=== PATIENT | male | born 1935 | race African-American/Black ===

== ENCOUNTER 2017-03-16 13:14 | Emergency (ER) | payer OTHER, MEDICAID ==
[~2017-03-16] VITALS: Ht 165.1 cm; Wt 71.0 kg
[2017-03-16 14:21] VITALS: BP 158/78
== END 2017-03-16 15:55 | disposition left against medical advice (07) ==
LOC: ER 13:14
DX: R33.9 Retention of urine, unspecified (principal); E11.9 Type 2 diabetes mellitus without complications; I10 Essential (primary) hypertension
CPT/HCPCS: 99281; A4315

== ENCOUNTER 2017-09-08 15:43 | Inpatient (IN) | payer OTHER, MEDICAID ==
[~2017-09-08] VITALS: Ht 165.1 cm; Wt 71.8 kg
[2017-09-08] MEDS ORDERED: DYZ GT (15:57)
[2017-09-08] MEDS ORDERED: SIMV10TA6 PO (15:57)
[2017-09-08] MEDS ORDERED: METO-539 PO (15:58)
[2017-09-08] MEDS ORDERED: NIFE60TA77 PO (15:58)
[2017-09-08] MEDS ORDERED: CLOP75TA33 PO (15:59)
[2017-09-08] MEDS ORDERED: LOSA50TA20 PO (15:59)
[2017-09-08] MEDS ORDERED: ACETAMINOPHEN 500MG TABLET PO SCH (16:15)
[2017-09-08 18:10] LABS: HEMATOCRIT. 45.6 % (42.0-52.0); HEMOGLOBIN. 15.1 g/dL (14.0-18.0); MEAN CORPUSCULAR HEMOGLOBIN 27.5 pg (28.0-32.0); MEAN PLATELET VOLUME 6.8 fl (7.4-10.4); RED BLOOD CELL COUNT 5.49 mill/uL (4.7-6.1)
[2017-09-08 18:16] LABS: CHLORIDE 106 mEq/L (98-107)
[2017-09-08 18:18] LABS: INR 1.2; PROTHROMBIN TIME 12.1 sec (9.4-11.6)
[2017-09-08 18:21] LABS: PLATELET 1504 x1000/uL (130-400)
[2017-09-08 18:48] LABS: PLATELET ESTIMATE MARKEDLY INCREASED
[2017-09-08 19:02] LABS: CLARITY URINE CLEAR (CLEAR); COLOR URINE YELLOW (YELLOW); KETONES URINE NEGATIVE (NEGATIVE); LEUKOCYTE ESTERASE URINE NEGATIVE (NEGATIVE); NITRITE URINE NEGATIVE (NEGATIVE); OCCULT BLOOD URINE 3+ (NEGATIVE); PH URINE 5.5 (4.5-8.0); PROTEIN URINE NEGATIVE (NEGATIVE); SPECIFIC GRAVITY URINE 1.016 (1.005-1.030)
[2017-09-08] MEDS ORDERED: PIPERACILLIN SODIUM/TAZOBACTAM 4.5 G in DEXT 5% WATER 100 ML IV SCH (21:00)
[2017-09-08] MEDS ORDERED: SODIUM CHLORIDE 0.9% 1000ML BAG (SEPSIS BOLUS) IV ONE (21:00)
[2017-09-08] MEDS ORDERED: VANCOMYCIN 1,500 MG in DEXT 5% WATER 250 ML IV SCH (21:00)
[2017-09-08] MEDS ORDERED: KETOROLAC 30MG/ML VIAL IV ONE (21:00)
[2017-09-08] MEDS ORDERED: VANCOMYCIN 1,500 MG in SODIUM CHLORIDE 0.9% 250 ML IV SCH (21:16)
[2017-09-09 03:30] VITALS: BP 168/78
[2017-09-09 04:28] VITALS: BP 168/78
[2017-09-09] MEDS ORDERED: ACETAMINOPHEN 325MG TABLET PO PRN (06:45)
[2017-09-09] MEDS ORDERED: CLONIDINE 0.2MG TABLET PO SCH (07:00)
[2017-09-09] MEDS: SODIUM CHLORIDE 0.45% 1,000 ML IV SCH (08:07)
[2017-09-09] MEDS: METOPROLOL TARTRATE 50MG TABLET PO SCH ×2 (08:12→21:33)
[2017-09-09] MEDS: CLONIDINE 0.2MG TABLET PO SCH ×3 (08:12→21:33)
[2017-09-09] MEDS: ENOXAPARIN 30MG/0.3ML SYR SUBCUT SCH ×2 (08:13→08:22)
[2017-09-09 08:22] VITALS: BP 152/67
[2017-09-09] MEDS ORDERED: PIPERACILLIN/TAZOBACTAM 2.25 G in SODIUM CHLORIDE 0.9% 50 ML IV SCH (09:00)
[2017-09-09 09:17] LABS: HEMATOCRIT 41.7 % (42.0-52.0); HEMOGLOBIN 13.9 g/dL (14.0-18.0); MEAN CORPUSCULAR HEMOGLOBIN 27.7 pg (28.0-32.0); MEAN CORPUSCULAR VOLUME 83.2 fL (80.0-94.0); RED BLOOD CELL COUNT 5.01 mill/uL (4.7-6.1); RED CELL DISTRIBUTION WIDTH 17.1 % (11.6-14.6)
[2017-09-09 09:27] LABS: PLATELET 1361 x1000/uL (130-400)
[2017-09-09 10:34] LABS: CHLORIDE 113 mEq/L (98-107)
[2017-09-09] MEDS: LEVOFLOXACIN 250MG PREMIX 50 ML IV SCH (11:22)
[2017-09-09 12:57] VITALS: BP 146/71
[2017-09-09] MEDS: PIPERACILLIN/TAZOBACTAM 2.25 G in SODIUM CHLORIDE 0.9% 50 ML IV SCH ×2 (15:43→21:33)
[2017-09-09 16:00] VITALS: BP 145/70
[2017-09-09 20:27] VITALS: BP 165/69
[2017-09-09] MEDS: HYDROCODONE/ACETAMINOPHEN 5/325MG TABLET PO PRN (21:41)
[2017-09-10] VITALS: BP 134/71
[2017-09-10 04:00] VITALS: BP 143/61
[2017-09-10] MEDS: PIPERACILLIN/TAZOBACTAM 2.25 G in SODIUM CHLORIDE 0.9% 50 ML IV SCH ×4 (04:01→21:56)
[2017-09-10] MEDS: SODIUM CHLORIDE 0.45% 1,000 ML IV SCH (04:03)
[2017-09-10 06:48] LABS: EOSINOPHILS % 2.9 % (0.0-5.0); HEMATOCRIT. 43.5 % (42.0-52.0); LYMPHOCYTES % 7.8 % (20.0-50.0); MEAN CORPUSCULAR HEMOGLOBIN 26.8 pg (28.0-32.0); MEAN PLATELET VOLUME 6.9 fl (7.4-10.4); MONOCYTES % 8.6 % (2.0-8.0); NEUTROPHILS % 79.7 % (40.0-76.0); RED BLOOD CELL COUNT 5.25 mill/uL (4.7-6.1)
[2017-09-10] MEDS: CLONIDINE 0.2MG TABLET PO SCH ×3 (06:53→22:00)
[2017-09-10] MEDS: HYDROXYUREA 500MG CAPSULE PO SCH (06:54)
[2017-09-10 08:13] VITALS: BP 138/66
[2017-09-10] MEDS: METOPROLOL TARTRATE 50MG TABLET PO SCH ×2 (08:31→21:56)
[2017-09-10] MEDS: ENOXAPARIN 30MG/0.3ML SYR SUBCUT SCH (08:32)
[2017-09-10] MEDS: HYDROCODONE/ACETAMINOPHEN 5/325MG TABLET PO PRN (09:19)
[2017-09-10 10:01] LABS: PLATELET 1137 x1000/uL (130-400); PLATELET ESTIMATE MARKEDLY INCREASED
[2017-09-10] MEDS: LEVOFLOXACIN 250MG PREMIX 50 ML IV SCH (10:02)
[2017-09-10 12:01] VITALS: BP 128/65
[2017-09-10] MEDS: AZITHROMYCIN 500 MG TABLET PO SCH (13:29)
[2017-09-10 16:00] VITALS: BP 133/56
[2017-09-10 20:00] VITALS: BP_SYST 120; BP_DIAS 53; BP_DIAS 57
[2017-09-11] VITALS: BP 120/53
[2017-09-11] MEDS: SODIUM CHLORIDE 0.45% 1,000 ML IV SCH
[2017-09-11] MEDS: PIPERACILLIN/TAZOBACTAM 2.25 G in SODIUM CHLORIDE 0.9% 50 ML IV SCH ×3 (03:55→15:39)
[2017-09-11 04:00] VITALS: BP 125/56
[2017-09-11 06:00] LABS: BASOPHILS % 0.8 % (0.0-2.0); EOSINOPHILS % 2.6 % (0.0-5.0); HEMOGLOBIN. 14.1 g/dL (14.0-18.0); LYMPHOCYTES % 7.8 % (20.0-50.0); MEAN CORPUSCULAR HEMOGLOBIN 27.4 pg (28.0-32.0); MEAN CORPUSCULAR VOLUME 83.5 fL (80.0-94.0); MEAN PLATELET VOLUME 6.8 fl (7.4-10.4); MONOCYTES % 9.5 % (2.0-8.0); NEUTROPHILS % 79.3 % (40.0-76.0); RED BLOOD CELL COUNT 5.15 mill/uL (4.7-6.1); RED CELL DISTRIBUTION WIDTH 17.1 % (11.6-14.6)
[2017-09-11] MEDS: HYDROXYUREA 500MG CAPSULE PO SCH (06:26)
[2017-09-11] MEDS: CLONIDINE 0.2MG TABLET PO SCH ×2 (06:27→13:49)
[2017-09-11 06:46] LABS: PLATELET 1119 x1000/uL (130-400)
[2017-09-11 08:00] VITALS: BP 130/57
[2017-09-11] MEDS: AZITHROMYCIN 500 MG TABLET PO SCH (08:31)
[2017-09-11] MEDS: METOPROLOL TARTRATE 50MG TABLET PO SCH (08:32)
[2017-09-11] MEDS ORDERED: ENOXAPARIN 40MG/0.4ML SYR SUBCUT SCH (09:00)
[2017-09-11 09:07] LABS: IMMUNOGLOBULIN A 143 mg/dL (61-437); IMMUNOGLOBULIN G 753 mg/dL (700-1600); IMMUNOGLOBULIN M 30 mg/dL (15-143)
[2017-09-11] MEDS: LEVOFLOXACIN 250MG PREMIX 50 ML IV SCH (09:56)
[2017-09-11 12:00] VITALS: BP 132/65
[2017-09-11] MEDS ORDERED: DOCUSATE SODIUM 250MG CAPSULE PO NR (15:30)
[2017-09-11] MEDS ORDERED: POLYETHYLENE GLYCOL 3350 (17GM) 1 DOSE PACK PO NR (15:30)
[2017-09-11 16:00] VITALS: BP 136/60
[2017-09-11 16:40] VITALS: BP 136/60
== END 2017-09-11 17:50 | disposition home or self-care (01) | DRG 728 ==
LOC: ER 16:40 → 6WST 22:00 → ENRESERV 09-09 02:09
PROVIDERS: ADMIT Internal Medicine; ATTEND Internal Medicine
DX: N41.9 Inflammatory disease of prostate, unspecified (principal); N17.9 Acute kidney failure, unspecified; E11.22 Type 2 diabetes mellitus with diabetic chronic kidney disease; I12.9 Hypertensive chronic kidney disease with stage 1 through stage 4 chronic kidney disease, or unspecified chronic kidney disease; K64.9 Unspecified hemorrhoids; N18.9 Chronic kidney disease, unspecified; N40.1 Benign prostatic hyperplasia with lower urinary tract symptoms; D47.3 Essential (hemorrhagic) thrombocythemia; K59.00 Constipation, unspecified; R33.8 Other retention of urine; Z90.49 Acquired absence of other specified parts of digestive tract
CPT/HCPCS: 36415; 51702; 71045; 76770; 80048; 80053; 81003; 82784; 83605; 84153; 85025; 85027; 85610; 86334; 87040; 87186; 93005; 96365; 96366; 96367; 96375; 99285; A6261; C1893; J1650; J1885; J1956; J2543; J3370; J7030; J7050; J7060

== ENCOUNTER 2018-07-05 12:42 | Inpatient (IN) | payer OTHER ==
[~2018-07-05] VITALS: Ht 167.6 cm; Wt 71.7 kg
[~2018-07-05 12:42] MED LIST: ACET-2853 PO; FINA5TAB11 PO; LOSA50TA20 PO; METO-539 PO; NIFE60TA77 PO; SENN25TA27 PO; SIMV10TA6 PO; TAMS0.4C31 PO; TRAM50TA3 MT; TRIA1TAB92 MT
[2018-07-05 16:12] LABS: BASOPHILS % 1.2 % (0.0-2.0); EOSINOPHILS % 3.1 % (0.0-5.0); HEMATOCRIT. 52.3 % (42.0-52.0); HEMOGLOBIN. 17.4 g/dL (14.0-18.0); LYMPHOCYTES % 12.1 % (20.0-50.0); MEAN CORPUSCULAR HEMOGLOBIN 27.8 pg (28.0-32.0); MEAN CORPUSCULAR VOLUME 83.5 fL (80.0-94.0); MEAN PLATELET VOLUME 7.4 fl (7.4-10.4); MONOCYTES % 9.8 % (2.0-8.0); NEUTROPHILS % 73.8 % (40.0-76.0); RED BLOOD CELL COUNT 6.26 mill/uL (4.7-6.1); RED CELL DISTRIBUTION WIDTH 17.2 % (11.6-14.6)
[2018-07-05 16:13] LABS: CLARITY URINE TURBID (CLEAR); COLOR URINE YELLOW (YELLOW); KETONES URINE TRACE (NEGATIVE); LEUKOCYTE ESTERASE URINE 3+ (NEGATIVE); NITRITE URINE NEGATIVE (NEGATIVE); OCCULT BLOOD URINE 1+ (NEGATIVE); PROTEIN URINE 3+ (NEGATIVE); SPECIFIC GRAVITY URINE 1.016 (1.005-1.030); UROBILINOGEN URINE 0.2 E.U./dL (0.2-1.0)
[2018-07-05 16:17] LABS: CHLORIDE 105 mEq/L (98-107)
[2018-07-05 16:19] LABS: INR 1.1; PARTIAL THROMBOPLASTIN TIME 38.1 sec (23.4-31.0); PLATELET 1092 x1000/uL (130-400); PROTHROMBIN TIME 11.4 sec (9.1-11.1)
[2018-07-05] MEDS ORDERED: GUAIFENESIN 200MG/10ML SUGAR FREE UDC PO PRN (18:15)
[2018-07-05] MEDS ORDERED: MAGNESIUM/ALUMINUM HYDROXIDE/SIMETHICONE 30ML UDC PO PRN (18:15)
[2018-07-05] MEDS ORDERED: ONDANSETRON HCL 4MG/2ML INJ IV PRN (18:15)
[2018-07-05] MEDS ORDERED: HYDROCODONE/ACETAMINOPHEN 5/325MG TABLET PO PRN (18:15)
[2018-07-05] MEDS ORDERED: DIPHENHYDRAMINE 50MG/ML VIAL IV PRN (18:15)
[2018-07-05] MEDS ORDERED: ACETAMINOPHEN 650MG SUPP PR PRN (18:15)
[2018-07-05] MEDS ORDERED: LORAZEPAM 0.5MG TABLET PO PRN (18:15)
[2018-07-05] MEDS ORDERED: DOCUSATE SODIUM 100MG CAPSULE PO PRN (18:15)
[2018-07-05] MEDS ORDERED: ACETAMINOPHEN 325MG TABLET PO PRN (18:15)
[2018-07-05] MEDS ORDERED: IPRATROPIUM/ALBUTEROL 0.5-3(2.5)MG/3ML NEB INH PRN (18:15)
[2018-07-05] MEDS ORDERED: CLONIDINE 0.1MG TABLET PO PRN (18:15)
[2018-07-05] MEDS ORDERED: PANTOPRAZOLE SODIUM 40 MG/VIAL IV SCH (18:45)
[2018-07-05 20:20] LABS: *AMPHETAMINES SCREEN URINE NEGATIVE (NEGATIVE); *BARBITURATES SCREEN URINE NEGATIVE (NEGATIVE); *BENZODIAZEPINES SCREEN URINE NEGATIVE (NEGATIVE); *COCAINE SCREEN URINE NEGATIVE (NEGATIVE)
[2018-07-05 20:21] LABS: CANNABINOID URINE SCREEN NEGATIVE (NEGATIVE); OPIATES URINE SCREEN NEGATIVE (NEGATIVE); PHENCYCLIDINE URINE SCREEN NEGATIVE (NEGATIVE)
[2018-07-05 20:23] LABS: METHADONE URINE SCREEN NEGATIVE (NEGATIVE)
[2018-07-05] MEDS ORDERED: SODIUM POLYSTYRENE SULFONATE 15 G/60 ML BOT PO NR (21:00)
[2018-07-05] MEDS ORDERED: PIPERACILLIN/TAZ 2.25G PREMIX 50 ML IV NR (21:00)
[2018-07-05] MEDS: DEXT 5%/0.45% NACL 1000ML 1,000 ML IV SCH (22:39)
[2018-07-06 03:29] VITALS: BP 167/74
[2018-07-06] MEDS: DEXT 5%/0.45% NACL 1000ML 1,000 ML IV SCH (03:47)
[2018-07-06] MEDS: PIPERACILLIN/TAZ 2.25G PREMIX 50 ML IV SCH ×2 (05:15→12:17)
[2018-07-06] MEDS ORDERED: VANCOMYCIN 750 MG PREMIX 150 ML IV SCH (07:00)
[2018-07-06 08:00] VITALS: BP 131/66
[2018-07-06] MEDS ORDERED: PANTOPRAZOLE SODIUM 40 MG/VIAL IV SCH (09:00)
[2018-07-06 11:14] LABS: HEMATOCRIT. 48.2 % (42.0-52.0); HEMOGLOBIN. 15.9 g/dL (14.0-18.0); MEAN CORPUSCULAR HEMOGLOBIN 27.6 pg (28.0-32.0); MEAN PLATELET VOLUME 7.2 fl (7.4-10.4); PLATELET 853 x1000/uL (130-400); RED BLOOD CELL COUNT 5.74 mill/uL (4.7-6.1); RED CELL DISTRIBUTION WIDTH 16.9 % (11.6-14.6)
[2018-07-06 12:00] VITALS: BP 142/66
[2018-07-06] MEDS ORDERED: PNEUMOCOCCAL 23-VAL P-SAC VAC 0.5 ML IM ONE (12:00)
[2018-07-06 12:15] LABS: CHLORIDE 106 mEq/L (98-107)
[2018-07-06 12:23] LABS: LDL CHOLESTEROL 64 mg/dL (5-100)
[2018-07-06 12:24] LABS: HDL CHOLESTEROL 17 mg/dL (40-59)
[2018-07-06 13:16] LABS: PLATELET ESTIMATE MARKEDLY INCREASED
[2018-07-06] MEDS ORDERED: PHENYLEPHRINE/SHK LV/MO/PET,WH RECTAL OINT 28GM PR SCH (14:00)
[2018-07-06 15:48] LABS: PLATELET ESTIMATE MARKEDLY INCREASED
[2018-07-06 16:00] VITALS: BP 158/70
[2018-07-06 17:00] VITALS: BP 142/66
[2018-07-07] MEDS ORDERED: DOCUSATE SODIUM 250MG CAPSULE PO SCH (09:00)
== END 2018-07-06 17:45 | disposition home or self-care (01) | DRG 394 ==
LOC: ER 13:21 → 8WST 16:56 → ENRESERV 07-06 01:02
PROVIDERS: ADMIT Internal Medicine; ATTEND Internal Medicine
DX: K64.8 Other hemorrhoids (principal); C78.7 Secondary malignant neoplasm of liver and intrahepatic bile duct; C79.51 Secondary malignant neoplasm of bone; N39.0 Urinary tract infection, site not specified; N17.9 Acute kidney failure, unspecified; K59.00 Constipation, unspecified; D72.829 Elevated white blood cell count, unspecified; D47.3 Essential (hemorrhagic) thrombocythemia; E87.5 Hyperkalemia; E78.5 Hyperlipidemia, unspecified; E78.00 Pure hypercholesterolemia, unspecified; C61 Malignant neoplasm of prostate; I12.9 Hypertensive chronic kidney disease with stage 1 through stage 4 chronic kidney disease, or unspecified chronic kidney disease; I73.9 Peripheral vascular disease, unspecified; N18.9 Chronic kidney disease, unspecified; N40.1 Benign prostatic hyperplasia with lower urinary tract symptoms; Z79.02 Long term (current) use of antithrombotics/antiplatelets; Z79.1 Long term (current) use of non-steroidal anti-inflammatories (NSAID); Z79.899 Other long term (current) drug therapy
CPT/HCPCS: 36415; 71045; 74176; 80061; 80305; 82270; 83605; 84153; 84439; 84443; 86850; 86900; 87077; 87186; 90732; 93005; 93970; 96374; 97162; 99291; C9113; J2543; J3370; G0103

== ENCOUNTER 2018-09-01 22:27 | Emergency (ER) | payer OTHER ==
[~2018-09-01] VITALS: Ht 167.6 cm; Wt 69.0 kg
[2018-09-02] MEDS ORDERED: NA PHOS,M-B/NA PHOS,DI-BA ENEMA 118ML PR ONE (01:15)
[2018-09-02] MEDS ORDERED: LACTULOSE 20G/30ML UDC PO ONE (02:00)
[2018-09-02 02:36] LABS: HEMATOCRIT. 53.8 % (42.0-52.0); HEMOGLOBIN. 17.7 g/dL (14.0-18.0); MEAN CORPUSCULAR HEMOGLOBIN 26.5 pg (28.0-32.0); MEAN CORPUSCULAR VOLUME 80.9 fL (80.0-94.0); MEAN PLATELET VOLUME 7.2 fl (7.4-10.4); RED BLOOD CELL COUNT 6.66 mill/uL (4.7-6.1); RED CELL DISTRIBUTION WIDTH 18.1 % (11.6-14.6)
[2018-09-02 02:38] LABS: PLATELET 1326 x1000/uL (130-400)
[2018-09-02 02:42] LABS: CHLORIDE 103 mEq/L (98-107)
[2018-09-02 04:51] LABS: PLATELET ESTIMATE INCREASED
[2018-09-02 05:12] VITALS: BP 180/87
== END 2018-09-02 05:15 | disposition home or self-care (01) ==
LOC: ER 22:27
DX: K59.00 Constipation, unspecified (principal); K62.89 Other specified diseases of anus and rectum; R11.2 Nausea with vomiting, unspecified; I10 Essential (primary) hypertension; Z85.46 Personal history of malignant neoplasm of prostate; Z79.899 Other long term (current) drug therapy
CPT/HCPCS: 36415; 74018; 99284

== ENCOUNTER 2020-01-31 09:20 | Inpatient (IN) | payer OTHER ==
[~2020-01-31] VITALS: Ht 165.1 cm; Wt 67.7 kg
[~2020-01-31 09:20] MED LIST changes: -ACET-2853 PO; +ACET650T37 PO; -LOSA50TA20 PO; +LOSA50TA41 PO; -SIMV10TA6 PO; +SIMV10TA97 PO
[2020-01-31] MEDS ORDERED: ASPIRIN 81MG TABLET PO ONE (09:30)
[2020-01-31] MEDS ORDERED: IBUP-2029 PO (09:32)
[2020-01-31] MEDS ORDERED: ENZA40CA PO (09:32)
[2020-01-31] MEDS ORDERED: CLOP75TA33 PO (09:32)
[2020-01-31 09:52] LABS: HEMOGLOBIN. 12.8 g/dL (14.0-18.0); MEAN CORPUSCULAR HEMOGLOBIN 28.6 pg (28.0-32.0); MEAN PLATELET VOLUME 7.3 fl (7.4-10.4); RED BLOOD CELL COUNT 4.48 mill/uL (4.7-6.1)
[2020-01-31 09:57] LABS: CHLORIDE 109 mEq/L (98-107)
[2020-01-31 09:59] LABS: PLATELET 1286 x1000/uL (130-400)
[2020-01-31] MEDS ORDERED: SODIUM CHLORIDE 0.9% 1,000 ML IV ONE (10:00)
[2020-01-31] MEDS ORDERED: KETOROLAC 30MG/ML VIAL IV ONE (10:15)
[2020-01-31 10:41] LABS: PLATELET ESTIMATE MARKEDLY INCREASED
[2020-01-31] MEDS: ASPIRIN 81MG TABLET PO SCH (12:30)
[2020-01-31] MEDS ORDERED: ACETAMINOPHEN 650MG SUPP PR PRN (12:30)
[2020-01-31] MEDS ORDERED: DOCUSATE SODIUM 100MG CAPSULE PO PRN (12:30)
[2020-01-31] MEDS ORDERED: LORAZEPAM 0.5MG TABLET PO PRN (12:30)
[2020-01-31] MEDS ORDERED: MAGNESIUM/ALUMINUM HYDROXIDE/SIMETHICONE 30ML UDC PO PRN (12:30)
[2020-01-31] MEDS ORDERED: ONDANSETRON HCL 4MG/2ML INJ IV PRN (12:30)
[2020-01-31] MEDS ORDERED: CLONIDINE 0.1MG TABLET PO PRN (12:30)
[2020-01-31] MEDS ORDERED: MORPHINE SULFATE 2 MG/ML CPJ (NOT FOR IM USE) IV PRN (12:30)
[2020-01-31] MEDS ORDERED: AZITHROMYCIN 500 MG in DEXT 5% WATER 250 ML IV SCH (12:30)
[2020-01-31] MEDS ORDERED: IPRATROPIUM/ALBUTEROL 0.5-3(2.5)MG/3ML NEB NEB PRN (12:30)
[2020-01-31] MEDS ORDERED: ACETAMINOPHEN 325MG TABLET PO PRN (12:30)
[2020-01-31] MEDS ORDERED: GUAIFENESIN 200MG/10ML SUGAR FREE UDC PO PRN (12:30)
[2020-01-31] MEDS ORDERED: CEFTRIAXONE 1 G PREMIX 50 ML IV NR (13:00)
[2020-01-31 14:10] LABS: BG BASE EXCESS -8.7 mmol/L (-2.0-2.0); BG CARBOXYHEMOGLOBIN 0.9 % (0.5-1.5); BG DEOXYHEMOGLOBIN 1.3 % (0.0-5.0); BG FRACTION INSPIRED OXYGEN 28; BG HCO3 ACT 15.6 mmol/L (22.0-26.0); BG METHEMOGLOBIN 0.1 % (0.0-1.5); BG OXYGEN SATURATION 98.7 % (92.0-98.5); BG OXYHEMOGLOBIN 97.7 % (94.0-97.0); BG PCO2 29.5 mmHg (35.0-45.0); BG PH 7.342 (7.350-7.450); BG PO2 131.9 mmHg (75.0-100.0); BG SAMPLE SITE RIGHT RADIAL; BG TOTAL HEMOGLOBIN 13.4 g/dL (12.0-18.0); BG VENT MODE NASAL CANNULA
[2020-01-31] MEDS: HYDROCODONE/ACETAMINOPHEN 5/325MG TABLET PO PRN (14:44)
[2020-01-31] MEDS: DIPHENHYDRAMINE 50MG/ML VIAL IV PRN (15:31)
[2020-01-31] MEDS ORDERED: SODIUM BICARBONATE 8.4% 1 MEQ/ML 50ML SYR IV NR ×2 (17:23)
[2020-01-31] MEDS: SODIUM CHLORIDE 0.45% 1,000 ML IV SCH (17:35)
[2020-01-31 17:43] LABS: CREATINE KINASE 194 IU/L (39-308)
[2020-01-31 17:44] LABS: CREATINE KINASE MB FRACTION 2.1 ng/mL (0.5-3.6)
[2020-01-31] MEDS ORDERED: PERMETHRIN 5% CREAM 60GM TOP SCH (18:00)
[2020-01-31] MEDS: FAMOTIDINE 20MG TABLET PO SCH (21:00)
[2020-01-31 23:55] VITALS: BP 133/51
[2020-02-01] VITALS: BP 133/51
[2020-02-01 00:12] LABS: CREATINE KINASE MB FRACTION 2.5 ng/mL (0.5-3.6)
[2020-02-01] MEDS ORDERED: TRIA1TAB92 MT (00:36)
[2020-02-01] MEDS: SODIUM CHLORIDE 0.45% 1,000 ML IV SCH ×3 (01:15→16:47)
[2020-02-01] MEDS: DIPHENHYDRAMINE 50MG/ML VIAL IV PRN (01:33)
[2020-02-01 04:00] VITALS: BP 124/52
[2020-02-01 06:25] LABS: BASOPHILS % 0.6 % (0.0-2.0); EOSINOPHILS % 1.4 % (0.0-5.0); HEMOGLOBIN. 12.8 g/dL (14.0-18.0); LYMPHOCYTES % 7.7 % (20.0-50.0); MEAN CORPUSCULAR HEMOGLOBIN 28.3 pg (28.0-32.0); MEAN CORPUSCULAR VOLUME 86.1 fL (80.0-94.0); MEAN PLATELET VOLUME 7.2 fl (7.4-10.4); NEUTROPHILS % 83.3 % (40.0-76.0); RED BLOOD CELL COUNT 4.53 mill/uL (4.7-6.1); RED CELL DISTRIBUTION WIDTH 19.2 % (11.6-14.6)
[2020-02-01 06:28] LABS: CHLORIDE 110 mEq/L (98-107)
[2020-02-01 06:39] LABS: LDL CHOLESTEROL 59 mg/dL (5-100)
[2020-02-01 06:41] LABS: HDL CHOLESTEROL 19 mg/dL (40-59); T4 FREE 1.15 ng/dL (0.76-1.46)
[2020-02-01 06:46] LABS: PLATELET 1358 x1000/uL (130-400)
[2020-02-01 08:00] VITALS: BP 144/55
[2020-02-01] MEDS: ASPIRIN 81MG TABLET PO SCH (08:17)
[2020-02-01 12:00] VITALS: BP 145/64
[2020-02-01] MEDS ORDERED: AZITHROMYCIN 500 MG in DEXT 5% WATER 250 ML IV SCH (12:00)
[2020-02-01] MEDS ORDERED: CEFTRIAXONE 1,000 MG in DEXTROSE 5% WATER 50 ML IV SCH ×4 (13:00)
[2020-02-01 16:00] VITALS: BP 123/54
[2020-02-01] MEDS ORDERED: SODIUM POLYSTYRENE SULFONATE 15 G/60 ML BOT PO NR (16:00)
[2020-02-01 16:13] LABS: PROTHROMBIN TIME 10.9 sec (9.6-11.0)
[2020-02-01] MEDS: PIPERACILLIN/TAZOBACTAM 2.25 G in DEXTROSE 5% WATER 50 ML IV SCH ×2 (16:46→23:54)
[2020-02-01] MEDS ORDERED: PERMETHRIN 5% CREAM 60GM TOP ONE (17:15)
[2020-02-01 20:00] VITALS: BP 130/52
[2020-02-01] MEDS: FAMOTIDINE 20MG TABLET PO SCH (20:11)
[2020-02-02] VITALS: BP 151/64
[2020-02-02] MEDS: HYDROCODONE/ACETAMINOPHEN 5/325MG TABLET PO PRN ×3 (01:28→13:28)
[2020-02-02 04:00] VITALS: BP 123/50
[2020-02-02] MEDS: PIPERACILLIN/TAZOBACTAM 2.25 G in DEXTROSE 5% WATER 50 ML IV SCH ×2 (04:09→09:30)
[2020-02-02] MEDS: SODIUM CHLORIDE 0.45% 1,000 ML IV SCH ×2 (04:10→13:31)
[2020-02-02 05:05] LABS: HEMATOCRIT 34.8 % (42.0-52.0); HEMOGLOBIN 11.8 g/dL (14.0-18.0); MEAN CORPUSCULAR HEMOGLOBIN 28.9 pg (28.0-32.0); MEAN CORPUSCULAR VOLUME 85.2 fL (80.0-94.0); RED BLOOD CELL COUNT 4.08 mill/uL (4.7-6.1); RED CELL DISTRIBUTION WIDTH 18.4 % (11.6-14.6)
[2020-02-02 06:45] LABS: PLATELET 1219 x1000/uL (130-400)
[2020-02-02] MEDS ORDERED: BICALUTAMIDE 50 MG TABLET PO SCH (09:00)
[2020-02-02 09:03] VITALS: BP 116/57
[2020-02-02] MEDS: ASPIRIN 81MG TABLET PO SCH (09:24)
[2020-02-02 12:24] VITALS: BP 115/55
[2020-02-02] MEDS ORDERED: LEVO500T2 MT (14:27)
[2020-02-02] MEDS ORDERED: ASPI-1497 MT (14:27)
[2020-02-02 14:57] VITALS: BP 115/75
== END 2020-02-02 15:51 | disposition home health service (06) | DRG 871 ==
LOC: ER 09:20 → 7WST 11:32 → CANRESERV 11:59 → ENRESERV 11:59 → SUPCPDRO 12:27 → ENRESERV 21:26 → 6WST 02-01 06:06
PROVIDERS: ADMIT Internal Medicine; ATTEND Internal Medicine
DX: A41.9 Sepsis, unspecified organism (principal); J18.9 Pneumonia, unspecified organism; C79.51 Secondary malignant neoplasm of bone; D68.59 Other primary thrombophilia; E87.2 Acidosis; N17.9 Acute kidney failure, unspecified; G90.8 Other disorders of autonomic nervous system; D64.9 Anemia, unspecified; D72.823 Leukemoid reaction; E78.5 Hyperlipidemia, unspecified; E86.1 Hypovolemia; E87.5 Hyperkalemia; I13.10 Hypertensive heart and chronic kidney disease without heart failure, with stage 1 through stage 4 chronic kidney disease, or unspecified chronic kidney disease; N18.9 Chronic kidney disease, unspecified; I25.10 Atherosclerotic heart disease of native coronary artery without angina pectoris; C61 Malignant neoplasm of prostate; G89.29 Other chronic pain; K59.00 Constipation, unspecified; R04.0 Epistaxis; Z82.49 Family history of ischemic heart disease and other diseases of the circulatory system; Z03.818 Encounter for observation for suspected exposure to other biological agents ruled out; D47.3 Essential (hemorrhagic) thrombocythemia; R79.89 Other specified abnormal findings of blood chemistry
CPT/HCPCS: 36415; 36600; 71045; 72170; 72192; 73721; 76700; 80048; 80053; 80061; 80076; 82375; 82550; 82553; 82805; 82962; 83880; 84153; 84439; 84443; 84484; 85025; 85027; 93005; 93306; 93880; 93970; 97116; 97162; 99285; J0456; J0696; J1200; J1885; J2270; J2405; J2543; J3490; J7030; J7060; G0103; U0003-CS

== ENCOUNTER 2020-10-24 19:02 | Inpatient (IN) | payer OTHER ==
[~2020-10-24] VITALS: Ht 162.6 cm; Wt 47.6 kg
[~2020-10-24 19:02] MED LIST changes: +ASPI-1497 MT; +CLOP75TA33 PO; +ENZA40CA PO; +LEVO500T2 MT; -LOSA50TA41 PO; -TRAM50TA3 MT; -TRIA1TAB92 MT
[2020-10-24] MEDS ORDERED: PANTOPRAZOLE SODIUM 40 MG/VIAL IV SCH (19:45)
[2020-10-24] MEDS ORDERED: ONDANSETRON HCL 4MG/2ML INJ IV ONE (20:15)
[2020-10-24] MEDS ORDERED: MORPHINE SULFATE 2 MG/ML CPJ (NOT FOR IM USE) IV ONE (20:15)
[2020-10-24] MEDS ORDERED: SODIUM CHLORIDE 0.9% 1,000 ML IV ONE (20:15)
[2020-10-24 20:48] LABS: CHLORIDE 104 mEq/L (98-107)
[2020-10-24 21:11] LABS: HEMOGLOBIN. 16.7 g/dL (14.0-18.0); MEAN CORPUSCULAR HEMOGLOBIN 25.2 pg (28.0-32.0); MEAN CORPUSCULAR VOLUME 77.2 fL (80.0-94.0); MEAN PLATELET VOLUME 7.9 fl (7.4-10.4); PLATELET 687 x1000/uL (130-400); RED CELL DISTRIBUTION WIDTH 18.4 % (11.6-14.6)
[2020-10-24 21:14] LABS: INR 1.2; PROTHROMBIN TIME 12.7 sec (9.6-11.0)
[2020-10-24] MEDS ORDERED: DEXTROSE 50% WATER 50ML SYRINGE IV NR (21:30)
[2020-10-24] MEDS ORDERED: INSULIN REGULAR (HUMULIN R) 300UNITS/3ML VIAL IV NR (21:30)
[2020-10-24] MEDS ORDERED: FUROSEMIDE 40MG/4ML VIAL IV NR (21:30)
[2020-10-24] MEDS ORDERED: SODIUM BICARBONATE 8.4% 1 MEQ/ML 50ML SYR IV NR (21:30)
[2020-10-24 21:34] LABS: PLATELET ESTIMATE INCREASED
[2020-10-25] VITALS (16 sets, daily range): BP systolic 113–134; BP diastolic 53–66
[2020-10-25] MEDS: DEXT 5%/0.45% NACL 1000ML 1,000 ML IV SCH ×3 (03:52→23:55)
[2020-10-25] MEDS ORDERED: ONDANSETRON HCL 4MG/2ML INJ IV PRN (04:00)
[2020-10-25] MEDS ORDERED: VANCOMYCIN 750 MG PREMIX 150 ML IV NR (05:00)
[2020-10-25] MEDS: MEROPENEM 1,000 MG in SODIUM CHLORIDE 0.9% 100 ML IV SCH ×2 (05:52→18:11)
[2020-10-25] MEDS ORDERED: ONDANSETRON HCL 4MG/2ML INJ IV SCH (06:00)
[2020-10-25 08:18] LABS: BG BASE EXCESS -5.6 mmol/L (-2.0-2.0); BG CARBOXYHEMOGLOBIN 0.4 % (0.5-1.5); BG FRACTION INSPIRED OXYGEN 32; BG HCO3 ACT 16.2 mmol/L (22.0-26.0); BG METHEMOGLOBIN 0.5 % (0.0-1.5); BG OXYHEMOGLOBIN 98.1 % (94.0-97.0); BG PH 7.448 (7.350-7.450); BG PO2 149.6 mmHg (75.0-100.0); BG SAMPLE SITE RIGHT BRACHIAL; BG TOTAL HEMOGLOBIN 15.6 g/dL (12.0-18.0); BG VENT MODE NASAL CANNULA
[2020-10-25] MEDS: PANTOPRAZOLE SODIUM 40 MG/VIAL IV SCH (09:14)
[2020-10-25 10:03] LABS: CHLORIDE 109 mEq/L (98-107)
[2020-10-25 10:13] LABS: HEMATOCRIT. 47.6 % (42.0-52.0); MEAN CORPUSCULAR HEMOGLOBIN 24.8 pg (28.0-32.0); MEAN CORPUSCULAR VOLUME 78.6 fL (80.0-94.0); MEAN PLATELET VOLUME 8.2 fl (7.4-10.4); PLATELET 533 x1000/uL (130-400); RED BLOOD CELL COUNT 6.05 mill/uL (4.7-6.1); RED CELL DISTRIBUTION WIDTH 18.6 % (11.6-14.6)
[2020-10-25 10:43] LABS: PLATELET ESTIMATE INCREASED
[2020-10-25 17:38] LABS: TOTAL IRON BINDING CAPACITY 247 ug/dL (250-450)
[2020-10-26] VITALS (12 sets, daily range): BP systolic 115–147; BP diastolic 53–71
[2020-10-26] MEDS: DEXT 5%/0.45% NACL 1000ML 1,000 ML IV SCH ×2 (02:03→18:05)
[2020-10-26] MEDS: MEROPENEM 1,000 MG in SODIUM CHLORIDE 0.9% 100 ML IV SCH ×2 (05:00→18:04)
[2020-10-26 07:17] LABS: HEMATOCRIT. 42.6 % (42.0-52.0); HEMOGLOBIN. 13.9 g/dL (14.0-18.0); MEAN CORPUSCULAR HEMOGLOBIN 25.5 pg (28.0-32.0); MEAN CORPUSCULAR VOLUME 77.9 fL (80.0-94.0); MEAN PLATELET VOLUME 8.2 fl (7.4-10.4); PLATELET 514 x1000/uL (130-400); RED BLOOD CELL COUNT 5.46 mill/uL (4.7-6.1); RED CELL DISTRIBUTION WIDTH 18.5 % (11.6-14.6)
[2020-10-26] MEDS: PANTOPRAZOLE SODIUM 40 MG/VIAL IV SCH (09:56)
[2020-10-26] MEDS ORDERED: VANCOMYCIN 750 MG PREMIX 150 ML IV SCH (12:00)
[2020-10-26] MEDS: NYSTATIN 100,000 UNITS/ML 5ML UDC SSW SCH ×3 (13:34→22:56)
[2020-10-26] MEDS ORDERED: SODIUM CHLORIDE 0.9% 1000ML BAG (SEPSIS BOLUS) IV ONE (15:00)
[2020-10-26] MEDS ORDERED: MORPHINE SULFATE 2 MG/ML CPJ (NOT FOR IM USE) IV PRN (19:15)
[2020-10-26 21:44] LABS: PLATELET ESTIMATE INCREASED
[2020-10-27] VITALS (13 sets, daily range): BP systolic 125–158; BP diastolic 56–74
[2020-10-27] MEDS: DEXT 5%/0.45% NACL 1000ML 1,000 ML IV SCH ×4 (00:50→21:31)
[2020-10-27 01:19] LABS: CLARITY URINE CLOUDY (CLEAR); COLOR URINE DARK YELLOW (YELLOW); KETONES URINE NEGATIVE (NEGATIVE); LEUKOCYTE ESTERASE URINE TRACE (NEGATIVE); NITRITE URINE NEGATIVE (NEGATIVE); OCCULT BLOOD URINE TRACE (NEGATIVE); PROTEIN URINE 1+ (NEGATIVE); SPECIFIC GRAVITY URINE 1.016 (1.005-1.030); UROBILINOGEN URINE 0.2 E.U./dL (0.2-1.0)
[2020-10-27] MEDS: MEROPENEM 1,000 MG in SODIUM CHLORIDE 0.9% 100 ML IV SCH ×2 (05:56→17:04)
[2020-10-27] MEDS: NYSTATIN 100,000 UNITS/ML 5ML UDC SSW SCH ×4 (06:04→23:48)
[2020-10-27 06:43] LABS: HEMATOCRIT. 40.4 % (42.0-52.0); HEMOGLOBIN. 12.9 g/dL (14.0-18.0); MEAN CORPUSCULAR VOLUME 78.4 fL (80.0-94.0); MEAN PLATELET VOLUME 8.1 fl (7.4-10.4); PLATELET 421 x1000/uL (130-400); RED BLOOD CELL COUNT 5.15 mill/uL (4.7-6.1); RED CELL DISTRIBUTION WIDTH 18.4 % (11.6-14.6)
[2020-10-27 06:45] LABS: CHLORIDE 112 mEq/L (98-107)
[2020-10-27 06:59] LABS: PHOSPHORUS 1.8 mg/dL (2.5-4.9)
[2020-10-27] MEDS: FAMOTIDINE 20MG/2ML VIAL IV SCH (09:18)
[2020-10-27] MEDS ORDERED: VANCOMYCIN 500 MG PREMIX 100 ML IV SCH (12:00)
[2020-10-27 14:51] LABS: PLATELET ESTIMATE INCREASED
[2020-10-27] MEDS ORDERED: BISACODYL 10MG SUPP PR PRN (17:15)
[2020-10-27] MEDS: FERROUS SULFATE 325MG TABLET PO SCH (17:35)
[2020-10-27] MEDS ORDERED: POTASSIUM PHOS,M-BASIC-D-BASIC 20 MMOL in DEXT 5% WATER 243.3333 ML IV NR (18:00)
[2020-10-27] MEDS: ASCORBIC ACID 500 MG TABLET PO SCH (21:31)
[2020-10-28] VITALS (10 sets, daily range): BP systolic 129–143; BP diastolic 53–69
[2020-10-28] MEDS: DEXT 5%/0.45% NACL 1000ML 1,000 ML IV SCH ×3 (03:00→20:05)
[2020-10-28] MEDS: MEROPENEM 1,000 MG in SODIUM CHLORIDE 0.9% 100 ML IV SCH ×2 (05:42→18:10)
[2020-10-28] MEDS: NYSTATIN 100,000 UNITS/ML 5ML UDC SSW SCH ×3 (05:58→18:00)
[2020-10-28 07:11] LABS: *CREATININE RANDOM URINE 59.4 mg/dL (Not Estab.); MICROALBUMIN RANDOM URINE 78.9 ug/mL (Not Estab.)
[2020-10-28 08:18] LABS: CHLORIDE 110 mEq/L (98-107)
[2020-10-28] MEDS: ASCORBIC ACID 500 MG TABLET PO SCH ×3 (08:18→20:00)
[2020-10-28] MEDS: FAMOTIDINE 20MG/2ML VIAL IV SCH (08:18)
[2020-10-28] MEDS: BISACODYL 5MG TABLET PO SCH (08:19)
[2020-10-28] MEDS: POLYETHYLENE GLYCOL 3350 (17GM) 1 DOSE PACK PO SCH (08:19)
[2020-10-28 08:22] LABS: PHOSPHORUS 3.3 mg/dL (2.5-4.9)
[2020-10-28] MEDS: FERROUS SULFATE 325MG TABLET PO SCH ×3 (08:26→18:00)
[2020-10-28 08:49] LABS: HEMATOCRIT. 38.9 % (42.0-52.0); HEMOGLOBIN. 12.6 g/dL (14.0-18.0); MEAN CORPUSCULAR HEMOGLOBIN 25.1 pg (28.0-32.0); MEAN CORPUSCULAR VOLUME 77.2 fL (80.0-94.0); MEAN PLATELET VOLUME 7.8 fl (7.4-10.4); PLATELET 415 x1000/uL (130-400); RED BLOOD CELL COUNT 5.04 mill/uL (4.7-6.1); RED CELL DISTRIBUTION WIDTH 18.2 % (11.6-14.6)
[2020-10-28 11:43] LABS: PLATELET ESTIMATE INCREASED
[2020-10-28] MEDS: VANCOMYCIN 750 MG PREMIX 150 ML IV SCH (13:15)
[2020-10-29] VITALS (13 sets, daily range): BP systolic 132–152; BP diastolic 62–78
[2020-10-29] MEDS: NYSTATIN 100,000 UNITS/ML 5ML UDC SSW SCH ×5 (01:09→17:12)
[2020-10-29] MEDS: MEROPENEM 1,000 MG in SODIUM CHLORIDE 0.9% 100 ML IV SCH (05:15)
[2020-10-29] MEDS: VANCOMYCIN 750 MG PREMIX 150 ML IV SCH (06:11)
[2020-10-29 07:01] LABS: HEMATOCRIT. 41.3 % (42.0-52.0); HEMOGLOBIN. 13.4 g/dL (14.0-18.0); MEAN CORPUSCULAR HEMOGLOBIN 25.2 pg (28.0-32.0); MEAN CORPUSCULAR VOLUME 77.9 fL (80.0-94.0); PLATELET 423 x1000/uL (130-400); RED BLOOD CELL COUNT 5.31 mill/uL (4.7-6.1); RED CELL DISTRIBUTION WIDTH 18.5 % (11.6-14.6)
[2020-10-29 07:23] LABS: CHLORIDE 109 mEq/L (98-107)
[2020-10-29 07:30] LABS: PHOSPHORUS 1.6 mg/dL (2.5-4.9)
[2020-10-29] MEDS: FAMOTIDINE 20MG/2ML VIAL IV SCH (08:39)
[2020-10-29] MEDS: FERROUS SULFATE 325MG TABLET PO SCH ×3 (08:39→17:12)
[2020-10-29] MEDS: BISACODYL 5MG TABLET PO SCH (08:39)
[2020-10-29] MEDS: POLYETHYLENE GLYCOL 3350 (17GM) 1 DOSE PACK PO SCH (08:40)
[2020-10-29] MEDS: DEXT 5%/0.45% NACL 1000ML 1,000 ML IV SCH (11:07)
[2020-10-29 13:37] LABS: PLATELET ESTIMATE SLIGHTLY INCREASED
[2020-10-29] MEDS ORDERED: MAGNESIUM 2 G PREMIX 50 ML IV SCH (14:00)
[2020-10-29] MEDS: LEVOFLOXACIN 250MG TABLET PO SCH ×2 (16:00→16:59)
[2020-10-29] MEDS: METRONIDAZOLE 500MG TABLET PO SCH ×2 (17:00→17:12)
[2020-10-29] MEDS ORDERED: POTASSIUM-SODIUM PHOSPHATE POWDER PACKET PO NR (18:00)
== END 2020-10-29 19:00 | disposition hospice, inpatient (51) | DRG 871 ==
LOC: ER 19:02 → 5EST 22:35 → EDBEDREQ 22:37 → EDBEDREQTM 22:37 → ENRESERV 23:52
PROVIDERS: ADMIT Internal Medicine; ATTEND Internal Medicine
DX: A41.9 Sepsis, unspecified organism (principal); G93.41 Metabolic encephalopathy; C79.51 Secondary malignant neoplasm of bone; C78.7 Secondary malignant neoplasm of liver and intrahepatic bile duct; E44.1 Mild protein-calorie malnutrition; E87.1 Hypo-osmolality and hyponatremia; N39.0 Urinary tract infection, site not specified; G82.20 Paraplegia, unspecified; K92.0 Hematemesis; E87.2 Acidosis; N17.9 Acute kidney failure, unspecified; Z68.1 Body mass index [BMI] 19.9 or less, adult; K52.9 Noninfective gastroenteritis and colitis, unspecified; N20.0 Calculus of kidney; N21.0 Calculus in bladder; E86.0 Dehydration; E87.5 Hyperkalemia; N18.9 Chronic kidney disease, unspecified; D50.9 Iron deficiency anemia, unspecified; E78.5 Hyperlipidemia, unspecified; N40.0 Benign prostatic hyperplasia without lower urinary tract symptoms; Z20.822 Contact with and (suspected) exposure to COVID-19; I12.9 Hypertensive chronic kidney disease with stage 1 through stage 4 chronic kidney disease, or unspecified chronic kidney disease; R62.7 Adult failure to thrive; Z51.5 Encounter for palliative care; Z79.899 Other long term (current) drug therapy; Z82.49 Family history of ischemic heart disease and other diseases of the circulatory system; Z83.3 Family history of diabetes mellitus; Z87.891 Personal history of nicotine dependence; Z90.49 Acquired absence of other specified parts of digestive tract; Z79.2 Long term (current) use of antibiotics; Z79.82 Long term (current) use of aspirin; C61 Malignant neoplasm of prostate; R65.20 Severe sepsis without septic shock
CPT/HCPCS: 36415; 36600; 71045; 74176; 80048; 80053; 80076; 80202; 81003; 82043; 82330; 82375; 82570; 82728; 82805; 82962; 83540; 83550; 83605; 83735; 83880; 83935; 84100; 84145; 84153; 84300; 84484; 85025; 86301; 86850; 86900; 87426; 92610; 93005; 97162; 99291; C9113; J1815; J1940; J2185; J2405; J3370; J3475; J3490; J7030; J7050; J7060; G0103